=== PATIENT | female | born 2000 | race Caucasian/White ===

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

== ENCOUNTER 2018-08-24 10:21 | Emergency (ER) | payer MEDICAID, OTHER ==
[~2018-08-24] VITALS: Ht 172.7 cm; Wt 63.6 kg
[2018-08-24] MEDS ORDERED: FLUC150T66 PO (11:01)
[2018-08-24 11:12] VITALS: BP 120/78
== END 2018-08-24 11:12 | disposition home or self-care (01) ==
LOC: ER 10:22
DX: N89.8 Other specified noninflammatory disorders of vagina (principal)
CPT/HCPCS: 99283

== ENCOUNTER 2019-01-02 09:36 | Emergency (ER) | payer MEDICAID, OTHER ==
[~2019-01-02] VITALS: Ht 172.7 cm; Wt 61.4 kg
[2019-01-02 09:39] VITALS: BP 122/78
[2019-01-02] MEDS ORDERED: ibuprofen tablet 400 MG TABLET PO ONE (10:35)
[2019-01-02] MEDS ORDERED: IBUP-1984 PO (10:54)
== END 2019-01-02 11:26 | disposition home or self-care (01) ==
LOC: ER 09:36
DX: S82.832A Other fracture of upper and lower end of left fibula, initial encounter for closed fracture (principal); S93.491A Sprain of other ligament of right ankle, initial encounter; Z79.2 Long term (current) use of antibiotics; W01.0XXA Fall on same level from slipping, tripping and stumbling without subsequent striking against object, initial encounter; Y93.89 Activity, other specified; Y92.89 Other specified places as the place of occurrence of the external cause; Y99.8 Other external cause status
CPT/HCPCS: 29125; 29515; 73610; 99284

== ENCOUNTER 2019-01-19 15:27 | Outpatient (CLI) | payer MEDICAID ==
[~2019-01-19 15:27] MED LIST changes: +IBUP-1984 PO
== END 2019-01-19 16:45 | disposition home or self-care (01) ==
LOC: ORTHO 15:27
PROVIDERS: ATTEND Orthopaedic Surgery
DX: S82.61XD Displaced fracture of lateral malleolus of right fibula, subsequent encounter for closed fracture with routine healing (principal); R58 Hemorrhage, not elsewhere classified; X58.XXXD Exposure to other specified factors, subsequent encounter
CPT/HCPCS: 73610; G0463

== ENCOUNTER 2019-02-23 15:42 | Outpatient (CLI) | payer MEDICAID ==
[~2019-02-23 15:42] MED LIST changes: -IBUP-1984 PO
== END 2019-02-23 16:30 | disposition home or self-care (01) ==
LOC: ORTHO 15:42
PROVIDERS: ATTEND Orthopaedic Surgery
DX: S82.64XD Nondisplaced fracture of lateral malleolus of right fibula, subsequent encounter for closed fracture with routine healing (principal); X58.XXXD Exposure to other specified factors, subsequent encounter
CPT/HCPCS: 73610; G0463

== ENCOUNTER 2019-11-21 12:22 | Emergency (ER) | payer MEDICAID ==
[~2019-11-21] VITALS: Ht 172.7 cm; Wt 72.5 kg
[2019-11-21 12:28] VITALS: BP 123/75
--- NOTE | 2019-11-21 13:41 | NUR ---
Pt has swelling to left labia with mild redness. See Provider notes for full exam findings.
[2019-11-21] MEDS ORDERED: LIDOcaine 1% W/epiNEPHrine 1:200,000 10ml vial IJ ONE (15:10)
[2019-11-21] MEDS ORDERED: METR-159 PO (16:05)
[2019-11-21] MEDS ORDERED: SULF1TAB49 PO (16:05)
[2019-11-21] MEDS ORDERED: LACT1CAP60 PO (16:06)
== END 2019-11-21 16:37 | disposition home or self-care (01) ==
LOC: ER 12:22
DX: N75.0 Cyst of Bartholin's gland (principal); Z79.2 Long term (current) use of antibiotics
CPT/HCPCS: 56420; 99284

== ENCOUNTER 2020-10-04 09:28 | Emergency (ER) | payer MEDICAID ==
[~2020-10-04] VITALS: Ht 172.7 cm; Wt 68.5 kg
[~2020-10-04 09:28] MED LIST changes: +LACT1CAP60 PO
[2020-10-04 10:03] LABS: BASOPHILS % (AUTO) 0.7 % (0-1); EOSINOPHILS # (AUTO) 0.1 X10'3 (0-0.9); EOSINOPHILS % (AUTO) 1.3 % (0-6); HEMATOCRIT 41.5 % (35.0-45.0); LYMPHOCYTES # (AUTO) 2.3 X10'3 (1.1-4.8); LYMPHOCYTES % (AUTO) 44.6 % (21-51); MEAN CORPUSCULAR HEMOGLOBIN 30.5 PG (27.0-31.0); MEAN CORPUSCULAR HGB CONC 33.7 g/dL (33.0-36.5); MEAN CORPUSCULAR VOLUME 90.5 FL (78-98); MONOCYTES # (AUTO) 0.3 X10'3 (0-0.9); MONOCYTES % (AUTO) 5.8 % (2-12); NEUTROPHILS # (AUTO) 2.4 X10'3 (1.8-7.7); NEUTROPHILS % (AUTO) 47.6 % (42-75); PLATELET COUNT 256 X10'3 (140-440); RED BLOOD COUNT 4.58 X10'6 (4.20-5.60); RED CELL DISTRIBUTION WIDTH 12.3 % (11.5-14.5); WHITE BLOOD COUNT 5.1 X10'3 (4.5-11.0)
[2020-10-04 10:18] LABS: ALANINE AMINOTRANSFERASE 14 U/L (12-78); ALBUMIN 4.4 G/DL (3.4-5.0); ALBUMIN/GLOBULIN RATIO 1.3 (1.1-1.5); ALKALINE PHOSPHATASE 55 IU/L (46-116); ANION GAP 10 (8-16); ASPARTATE AMINO TRANSFERASE 14 U/L (10-37); BILIRUBIN,TOTAL 0.5 MG/DL (0.1-1.0); BLOOD UREA NITROGEN 9 MG/DL (7-18); BUN/CREATININE RATIO 12.2 (6.6-38.0); CALCIUM 9.2 MG/DL (8.5-10.1); CHLORIDE 104 MMOL/L (99-107); CREATININE 0.74 MG/DL (0.40-0.90); GLUCOSE 85 MG/DL (70-104); LIPASE 63 U/L (73-393); SODIUM 140 MMOL/L (135-145); TOTAL CARBON DIOXIDE 26.4 MMOL/L (24-32); TOTAL PROTEIN 7.9 G/DL (6.4-8.2); eGFR > 90 ML/MIN
[2020-10-04 10:31] VITALS: BP 125/78
[2020-10-04 11:20] LABS: URINE HCG NEGATIVE (NEG)
[2020-10-04 11:26] LABS: CLARITY,URINE CLOUDY (Clear); COLOR,URINE YELLOW (Yellow); GLUCOSE, URINE NEGATIVE (Neg); KETONES,URINE NEGATIVE (Neg); LEUKOCYTE ESTERASE ,URINE SMALL (Neg); NITRITES, URINE NEGATIVE (Neg); OCCULT BLOOD,URINE NEGATIVE (Neg); PH,URINE 5.5 (4.8-8.0); PROTEIN,URINE NEGATIVE (Neg); UROBILINOGEN,URINE 0.2 E.U/dL (0.2-1.0)
[2020-10-04 11:32] LABS: UA COLLECTION TYPE CLN CATCH MIDSTREAM
[2020-10-04 11:33] LABS: MUCUS STRANDS MODERATE /LPF (Neg); SQUAMOUS EPITHELIAL CELL,UR MANY /LPF (FEW)
[2020-10-04 11:34] LABS: BACTERIA,URINE FEW /HPF (Neg); RBC,URINE 0-2 /HPF (0-2); YEAST FEW /HPF (NEGATIVE)
== END 2020-10-04 12:19 | disposition home or self-care (01) ==
LOC: ER 09:29
DX: R10.30 Lower abdominal pain, unspecified (principal); Z79.2 Long term (current) use of antibiotics; Z79.899 Other long term (current) drug therapy
CPT/HCPCS: 36415; 80053; 81001; 81025; 83690; 85025; 99283

== ENCOUNTER 2021-01-10 08:55 | Emergency (ER) | payer MEDICAID ==
[~2021-01-10] VITALS: Ht 172.7 cm; Wt 68.6 kg
[2021-01-10 09:09] VITALS: BP 124/78
[2021-01-10] MEDS ORDERED: ondansetron 4mg rapidly disintigrating tab PO ONE (10:15)
[2021-01-10] MEDS ORDERED: AMOX-422 PO (10:48)
== END 2021-01-10 11:20 | disposition home or self-care (01) ==
LOC: ER 08:57
DX: O26.91 Pregnancy related conditions, unspecified, first trimester (principal); N75.1 Abscess of Bartholin's gland; R11.0 Nausea; Z3A.08 8 weeks gestation of pregnancy; Z79.2 Long term (current) use of antibiotics; Z79.899 Other long term (current) drug therapy
CPT/HCPCS: 56420; 87070; 87075; 87077; 87186; 99284